=== PATIENT | male | born 1985 | race Hispanic/Latino ===

== ENCOUNTER 2016-11-22 03:42 | Emergency (ER) | payer OTHER ==
[~2016-11-22] VITALS: Ht 172.7 cm; Wt 99.8 kg
[~2016-11-22 03:42] MED LIST: HYDR1SOL PO
[2016-11-22] MEDS ORDERED: ZOLO100T PO (03:58)
[2016-11-22] MEDS ORDERED: TRAZ100T4 PO (03:58)
[2016-11-22] MEDS ORDERED: PRAZ2CAP PO (03:58)
[2016-11-22] MEDS ORDERED: MELA3CAP PO (03:58)
[2016-11-22] MEDS ORDERED: methylPREDNISolone INJ 125 MG/2 ML VIAL (J2930) IM ONE (04:15)
[2016-11-22] MEDS ORDERED: PRED20TA PO (04:55)
[2016-11-22] MEDS ORDERED: ROBISYP7 PO (04:58)
[2016-11-22] MEDS ORDERED: guaiFENesin DM LIQ 10ML UD PO ONE (05:00)
[2016-11-22 05:06] VITALS: BP 129/73
--- NOTE | 2016-11-22 08:15 | REP ---
Chest two views HISTORY: Cough Comparison: None The lungs are clear. The heart is normal in size. The pulmonary vasculature is normal in appearance. The bony structure is intact. IMPRESSION: No acute disease. Signed by Jaguar Mejia MD 11/22/2016 08:06 A
== END 2016-11-22 05:11 | disposition home or self-care (01) ==
LOC: M ED 04:28
DX: B34.9 Viral infection, unspecified (principal); J20.9 Acute bronchitis, unspecified; Z79.899 Other long term (current) drug therapy; F41.9 Anxiety disorder, unspecified
CPT/HCPCS: 71020; 96372; 99282; J2930